=== PATIENT | female | born 1995 | race Caucasian/White ===

== ENCOUNTER 2017-01-20 11:53 | Emergency (ER) | payer OTHER ==
[~2017-01-20] VITALS: Ht 160 cm; Wt 54.4 kg
[2017-01-20 12:02] VITALS: BP 119/73
--- NOTE | 2017-01-20 12:06 | NUR ---
Patient ambulated to bed 7.
[2017-01-20] MEDS ORDERED: FLUORESCEIN OPTH STRIP 1 MG OP ONE (12:10)
[2017-01-20] MEDS ORDERED: TETRACAINE 0.5% OPTH SOL 2 ML BTL OP ONE (12:10)
--- NOTE | 2017-01-20 12:13 | NUR ---
DR. REGALADO AT BEDSIDE
--- NOTE | 2017-01-20 12:14 | NUR ---
PATIENT PRESENTS TO ED DUE TO RIGHT EYE PAIN SINCE THIS AM. DENIES N/V/D; SKIN IS PINK/WARM/DRY; AAOX4 WITH EVEN AND STEADY GAIT; LUNGS CLEAR BL; HR EVEN AND REGULAR; PT DENIES ANY FEVER, CP, SOB, OR COUGH AT THIS TIME; PATIENT STATES PAIN OF 8/10 AT THIS TIME; PATIENT POSITIONED FOR COMFORT; HOB ELEVATED; BEDRAILS UP X2; BED DOWN
--- NOTE | 2017-01-20 12:18 | NUR ---
PT SITTING,NO DRAINAGE NOTED ON RIGHT EYE, NO UNUSUAL OBSERVATION NOTED.
[2017-01-20 12:31] VITALS: BP 120/72
--- NOTE | 2017-01-20 12:32 | NUR ---
Patient discharged with v/s stable. Written and verbal after care instructions given and explained. Patient alert, oriented and verbalized understanding of instructions. Ambulatory with steady gait. All questions addressed prior to discharge. ID band removed. Patient advised to follow up with PMD. Rx of MOTRIN AND ARTIFICIAL TEARS given. Patient educated on indication of medication including possible reaction and side effects. Opportunity to ask questions provided and answered.
== END 2017-01-20 12:32 | disposition home or self-care (01) ==
LOC: MED 11:53
DX: S05.91XA Unspecified injury of right eye and orbit, initial encounter (principal); X58.XXXA Exposure to other specified factors, initial encounter; Y93.89 Activity, other specified; Y92.89 Other specified places as the place of occurrence of the external cause; Y99.8 Other external cause status
CPT/HCPCS: 99283